=== PATIENT | male | born 1950 | race Hispanic/Latino ===

== ENCOUNTER 2016-12-02 08:02 | Observation (INO) | payer OTHER ==
--- NOTE | 2016-12-02 08:26 | C.PDOC ---
History Of Present Illness 65-YEAR-OLD MALE, PRESENTS TO THE EMERGENCY DEPARTMENT WITH COMPLAINTS OF WORSENING SOB X 2-3 DAYS. HO COPD. 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 PS "I FEEL 75% BACK TO NORMAL". PS INITIALLY HE HAD WHEEZE NOW RESOLVED W EMS [place]. CO CHEST TIGHTNESS "BC IM SO SHORT OF BREATH" BUT DENIES CHEST PAIN. NO FEVER, LEG SWELL. DENIES HO CHF. STATES DOES NOT HAVE HOME O2 EXAM MILD RESP DIST APPEARS COMFORTABLE HEENT NEG LUNGS +RETRACTIONS, SPEAKING FULL SENTENCES. DECR BS B/L NO RALES CV RRR SINUS TACH ABD NEG NO EDEMA WARM DRY MDM PT ADVISED POSSIBILITY OF NEED FOR ADMISSION BUT PS PREFERS NO ADMISSION. PMD @ [place] WILL ER OBS, REASSESS Time Seen by Provider: 12/02/16 08:05 History Per: Patient History/Exam Limitations: no limitations Past Medical History Reviewed: Historical Data, Nursing Documentation, Vital Signs Vital Signs: Last Vital Signs Temp 98.1 F 12/02/16 12:49 Pulse 113 H 12/02/16 12:49 Resp 27 H 12/02/16 12:49 BP 143/87 12/02/16 12:49 Pulse Ox 89 L 12/02/16 12:49 Family History: States: No Known Family Hx Review Of Systems Except As Marked, All Systems Reviewed And Found Negative. Constitutional: Negative for: Fever Cardiovascular: Positive for: Chest Pain (tightness). Negative for: Palpitations, Edema Respiratory: Positive for: Shortness of Breath, Wheezing Gastrointestinal: Negative for: Vomiting Musculoskeletal: Negative for: Back Pain Physical Exam - Physical Exam Appears: Non-toxic, No Acute Distress, Other (MILD RESP DIST APPEARS COMFORTABLE ) Skin: Warm, Dry, No Rash Head: Atraumatic, Normacephalic Eye(s): bilateral: Normal Inspection, PERRL Nose: Normal Oral Mucosa: Moist Neck: Normal ROM Chest: Symmetrical Cardiovascular: Rhythm Regular (SINUS TACH), No Murmur Respiratory: No Accessory Muscle Use, Other (+RETRACTIONS, SPEAKING FULL SENTENCES. DECR BS B/L NO RALES) Gastrointestinal/Abdominal: Soft, No Tenderness Extremity: Normal ROM Neurological/Psych: Oriented x3 ED Course And Treatment - Laboratory Results Result Diagrams: 12/02/16 08:43 12/02/16 08:43 ECG: Interpreted By Me ECG Rhythm: Sinus Tachycardia ECG Interpretation: Abnormal Rate From EC - Radiology CXR: Interpreted by Me CXR Interpretation: Yes: No Acute Disease Medical Decision Making Medical Decision Making: PT ADVISED POSSIBILITY OF NEED FOR ADMISSION BUT PS PREFERS NO ADMISSION. PMD @ [place]. WILL ER OBS, REASSESS ED OBSERVATION Discharge: Yes Date of observation admission: 12/02/16 Time of observation admission: 08:15 - Observation admission statement Patient is being placed in observation because:: COPD EXAC; RESP DIST - Goals of Observation Goals of observation are:: VSS, SX IMPROVE - Progress Note Progress Note: 12:40 Patient ambulatory in ED, states he feels better. Patient w/ persistent dyspnea on exertion. His O2 sat 85% on RA w/ exertion. Has unknown baseline O2. Patient was advised on need for admission due to persistent hypoxia and shortness of breath. States he does not want to be admitted. Leaving Against Medical Advice (AMA): This patient is choosing to leave against medical advice. I have personally explained to the pt that choosing to do so may result in permanent bodily harm or . I have discussed at great length that without further evaluation and monitoring there may be unforeseen circumstances and/or deterioration causing permanent bodily harm or as a result of their choice. The pt verbalized these risks back to the physician in laymans terms. The pt is alert, oriented, and shows the mental capacity to make clear decisions regarding the pts health care at this time. The pt continues to wish to leave against medical advice. In light of the pts decision to leave AMA, follow-up has been arranged and the pt is aware of the importance of following up as instructed. The pt has been advised that they should return to the ED immediately if they change their mind at any time, or if their condition begins to change or worsen in any way. Disposition Counseled Patient/Family Regarding: Studies Performed, Diagnosis, Need For Followup, Rx Given - Disposition Disposition: AGAINST MEDICAL ADVICE Disposition Time: 12:30 Condition: STABLE - Clinical Impression Clinical Impression: Respiratory distress, COPD exacerbation, Hypoxia - Scribe Statement The provider has reviewed the documentation as recorded by the Scribe (Yovany Barron) All medical record entries made by the Scribe were at my direction and personally dictated by me. I have reviewed the chart and agree that the record accurately reflects my personal performance of the history, physical exam, medical decision making, and the department course for this patient. I have also personally directed, reviewed, and agree with the discharge instructions and disposition.
[2016-12-02 08:30] VITALS: BMI 36.6
[2016-12-02 08:48] LABS: BASO # 0.1 K/uL (0.0-0.2); BASO % 0.9 % (0.0-2.0); EOS # 0.1 K/uL (0.0-0.7); EOS % 0.6 % (0.0-4.0); HEMOGLOBIN 14.9 g/dL (12.0-18.0); LYMPH # 2.2 K/uL (1.0-4.3); MEAN CELL VOLUME 85.2 fL (80.0-94.0); MEAN CORPUSCULAR HEMOGLOBIN 27.7 pg (27.0-31.0); MEAN CORPUSCULAR HGB CONC 32.5 g/dL (33.0-37.0); MEAN PLATELET VOLUME 9.1 fL (7.2-11.7); MONO # 0.9 K/uL (0.0-0.8); MONO % 8.3 % (0.0-10.0); NEUT # 7.1 K/uL (1.8-7.0); NEUT % 69.2 % (50.0-75.0); NRBC % 0.1 % (0.0-2.0); RBC 5.39 Mil/uL (4.40-5.90); RED CELL DISTRIBUTION WIDTH 15.5 % (11.5-14.5); WHITE BLOOD COUNT 10.3 K/uL (4.8-10.8)
[2016-12-02] MEDS: Albuterol-Ipratrop 3 mg / 0.5 (3 ml) UD IH SCH ×2 (08:50→09:00)
[2016-12-02 08:55] LABS: ALBUMIN 3.7 g/dL (3.5-5.0)
[2016-12-02 08:58] LABS: AST/SGOT 25 U/L (17-59); GFR AFRICAN-AMERICAN > 60; GFR NON-AFRICAN AMERICAN > 60
[2016-12-02 08:59] LABS: ALT/SGPT 50 U/L (21-72); BLOOD UREA NITROGEN 15 mg/dL (9-20); CALCIUM 8.6 mg/dl (8.6-10.4)
--- NOTE | 2016-12-02 09:06 | RAD ---
PROCEDURE: CHEST RADIOGRAPH, 1 VIEW HISTORY: Shortness of breath COMPARISON: None available. FINDINGS: LUNGS: The lungs are hyperinflated and there are chronic changes in both lungs. No focal consolidation. PLEURA: No pneumothorax or pleural fluid seen. CARDIOVASCULAR: Normal. OSSEOUS STRUCTURES: No significant abnormalities. VISUALIZED UPPER ABDOMEN: Normal. OTHER FINDINGS: None. IMPRESSION: No active pulmonary disease. COPD.
[2016-12-02 09:07] LABS: B-TYPE NATRIURETIC PEPTIDE 2220 pg/mL (0-900)
[2016-12-02 12:49] VITALS: BP 143/87; PULSE 113; RESP 27; TEMP 98.1; O2SAT 89
--- NOTE | 2016-12-03 14:45 | CARD ---
APPROVED REPORT EKG Measurement Heart [id number] [place] [id number] <Conclusion> Sinus tachycardia Otherwise normal ECG
== END 2016-12-02 13:16 | disposition home or self-care (01) ==
LOC: C.ER 08:02 → C.9OBSV 08:15
PROVIDERS: ADMIT Emergency Medicine; ATTEND Emergency Medicine
DX: J44.1 Chronic obstructive pulmonary disease with (acute) exacerbation (principal); R09.02 Hypoxemia
CPT/HCPCS: 71010; 80053; 83880; 84484; 85025; 94640; G0378

== ENCOUNTER 2018-07-05 17:59 | Emergency (ER) | payer SELFPAY ==
[2018-07-05 17:59] VITALS: BMI 36.6
[2018-07-05 18:10] VITALS: O2SAT 95
[2018-07-05] MEDS ORDERED: Albuterol-Ipratrop 3 mg / 0.5 (3 ml) UD INH STA (18:21)
[2018-07-05] MEDS ORDERED: Albuterol 0.083% Inhal Sol (2.5 mg/3 mL) UD IH STA ×2 (18:21→19:40)
[2018-07-05] MEDS ORDERED: Albuterol-Ipratrop 3 mg / 0.5 (3 ml) UD ONE (19:12)
[2018-07-05] MEDS ORDERED: Albuterol 0.083% Inhal Sol (2.5 mg/3 mL) UD ONE ×2 (19:13→20:08)
--- NOTE | 2018-07-05 19:16 | C.PDOC ---
History Of Present Illness 67 year old male brought by EMS for evaluation s/p stumbling and falling in a grocery store. He denies drinking alcohol, but admitted drinking Bacardi to the EMS. He also complains of right shoulder pain, lower back pain, cough, SOB, and wheezing. Patient has a PMHx of asthma, COPD, chronic back pain, and psychiatric problems. He denies nausea, vomiting, weakness, or numbness. - HPI Time Seen by Provider: 07/05/18 18:08 Chief Complaint (Nursing): Trauma History Per: Patient History/Exam Limitations: intoxication Onset/Duration Of Symptoms: Hrs Location Of Injury: Right: Arm (right shoulder pain) - Fall Fall:Prior To Injury: Other (stumbled) Past Medical History Reviewed: Historical Data, Nursing Documentation, Vital Signs Vital Signs: Last Vital Signs Temp 98.7 F 07/05/18 18:07 Pulse 97 H 07/05/18 18:07 Resp 19 07/05/18 18:07 BP 172/77 H 07/05/18 18:07 Pulse Ox 95 07/05/18 18:07 - Medical History PMH: Asthma, HTN Surgical History: No Surg Hx Family History: States: Unknown Family Hx - Social History Hx Alcohol Use: No (DENIES) Hx Substance Use: No - Immunization History Hx Tetanus Toxoid Vaccination: No Hx Influenza Vaccination: No Hx Pneumococcal Vaccination: No Review Of Systems Constitutional: Negative for: Fever, Chills, Weakness Cardiovascular: Negative for: Chest Pain, Palpitations, Light Headedness Respiratory: Positive for: Cough, Shortness of Breath, Wheezing Gastrointestinal: Negative for: Nausea, Vomiting Musculoskeletal: Positive for: Shoulder Pain (right), Back Pain (lower) Neurological: Negative for: Weakness, Numbness, Dizziness Physical Exam - Physical Exam Appears: Unkempt, Other (intoxicated, coughing intermittently) Skin: Normal Color, Warm, Dry Head: Atraumatic, Normacephalic Neck: Normal ROM, Supple Chest: Symmetrical, No Deformity Cardiovascular: Rhythm Regular, No Murmur Respiratory: No Rales, No Rhonchi, Wheezing (diffuse, expiratory wheezing bilaterally) Gastrointestinal/Abdominal: Soft, No Tenderness Extremity: Capillary Refill (<2 seconds), Other (dirty feet) Pulses: Left Radial: Normal, Right Radial: Normal Neurological/Psych: Oriented x3, Normal Speech, Normal Cognition ED Course And Treatment O2 Sat by Pulse Oximetry: 95 (RA) Progress Note: CXR and Right shoulder X-ray ordered for patient. Glucose POC ordered for patient. Paient given Duoneb INH, Tylenol PO, and Prednisone PO. Disposition Counseled Patient/Family Regarding: Studies Performed, Diagnosis, Need For Followup, Rx Given - Disposition Referrals: [facility] [Outside] Disposition: HOME/ ROUTINE Disposition Time: 22:00 Condition: STABLE Prescriptions: Albuterol HFA [Ventolin HFA 90 mcg/actuation (8 g)] 0.09 mg IH Q4 PRN #1 puff PRN Reason: Wheezing predniSONE [predniSONE Tab] 40 mg PO DAILY #8 tab Instructions: Alcohol Abuse and Alcoholism (DC), Chronic Obstructive Pulmonary Disease (COPD), Including Emphysema Forms: [employer] (Mohawk) Print Language: BAHRAINI - Clinical Impression Clinical Impression: Alcohol intoxication, COPD exacerbation - Scribe Statement The provider has reviewed the documentation as recorded by the Scribe (Kaye Chapman) All medical record entries made by the Scribe were at my direction and personally dictated by me. I have reviewed the chart and agree that the record accurately reflects my personal performance of the history, physical exam, medical decision making, and the department course for this patient. I have also personally directed, reviewed, and agree with the discharge instructions and disposition.
[2018-07-05 19:53] VITALS: RESP 16
[2018-07-05 21:25] VITALS: BP 130/75; PULSE 90; TEMP 97.9
--- NOTE | 2018-07-06 08:32 | RAD ---
Chest x-ray single frontal view HISTORY: Shortness of breath. Cough. COMPARISON: 12/02/2016 Findings: Diffuse increased interstitial lung markings. Mild venous congestion. Right hilar prominence. Mild cardiomegaly. Degenerative changes in the spine and shoulders. Impression: Diffuse increased interstitial lung markings. Mild venous congestion. Right hilar prominence. Mild cardiomegaly.
--- NOTE | 2018-07-06 11:43 | RAD ---
Date of service: 07/05/2018 PROCEDURE: Radiographs of the Right Shoulder HISTORY: right shoulder pain, ? fall,r/o FX COMPARISON: No prior. FINDINGS: BONES: Bone alignment and mineralization are normal. There is no acute displaced fracture or bone destruction. JOINTS: There is moderate degenerative osteoarthrosis in the acromioclavicular joint. The glenohumeral joint is normal. SOFT TISSUES: Normal. OTHER FINDINGS: None. IMPRESSION: No acute displaced fracture or dislocation.
== END 2018-07-05 22:05 | disposition home or self-care (01) ==
LOC: C.ER 17:59
DX: F10.129 Alcohol abuse with intoxication, unspecified (principal); J44.1 Chronic obstructive pulmonary disease with (acute) exacerbation; I10 Essential (primary) hypertension

== ENCOUNTER 2018-07-11 12:02 | Emergency (ER) | payer OTHER ==
[2018-07-11 12:02] VITALS: BMI 36.6
[2018-07-11] MEDS ORDERED: Sodium Chloride 0.9% 1,000 ML IV ONE (12:31)
[2018-07-11] MEDS ORDERED: Albuterol-Ipratrop 3 mg / 0.5 (3 ml) UD IH STA (12:35)
[2018-07-11] MEDS ORDERED: Sodium Chloride 0.9% 1,000 ML ONE (13:04)
--- NOTE | 2018-07-11 13:04 | RAD ---
Date of service: 07/11/2018 HISTORY: Sepsis Patient COMPARISON: 07/05/2018 FINDINGS: LUNGS: No active pulmonary disease. PLEURA: No significant pleural effusion identified, no pneumothorax apparent. CARDIOVASCULAR: No aortic atherosclerotic calcification present. Normal cardiac size. No pulmonary vascular congestion. OSSEOUS STRUCTURES: No significant abnormalities. VISUALIZED UPPER ABDOMEN: Normal. OTHER FINDINGS: None. IMPRESSION: No active disease.
[2018-07-11] MEDS ORDERED: Albuterol-Ipratrop 3 mg / 0.5 (3 ml) UD ONE (13:05)
[2018-07-11 13:10] LABS: ABG ALLEN TEST PO; ARTERIAL BLOOD GAS HCO3 21.1 mmol/L (21-28); ARTERIAL BLOOD GAS O2 SAT 92.2 % (95-98); ARTERIAL BLOOD GAS PCO2 40 mm/Hg (35-45); ARTERIAL BLOOD GAS PH 7.33 (7.35-7.45); ARTERIAL BLOOD GAS PO2 55 mm/Hg (80-100); ARTERIAL BLOOD GAS TCO2 22.3 mmol/L (22-28)
[2018-07-11 13:31] LABS: BASO # 0.1 K/uL (0.0-0.2); BASO % 0.8 % (0.0-2.0); EOS # 0.1 K/uL (0.0-0.7); EOS % 0.6 % (0.0-4.0); HEMOGLOBIN 14.2 g/dL (12.0-18.0); LYMPH # 0.9 K/uL (1.0-4.3); LYMPH % 10.2 % (20.0-40.0); MEAN CORPUSCULAR HEMOGLOBIN 28.8 pg (27.0-31.0); MEAN CORPUSCULAR HGB CONC 32.9 g/dL (33.0-37.0); MEAN PLATELET VOLUME 9.5 fL (7.2-11.7); MONO # 0.3 K/uL (0.0-0.8); MONO % 4.1 % (0.0-10.0); NEUT # 7.1 K/uL (1.8-7.0); NEUT % 84.3 % (50.0-75.0); RBC 4.93 Mil/uL (4.40-5.90); RED CELL DISTRIBUTION WIDTH 15.4 % (11.5-14.5); WHITE BLOOD COUNT 8.5 K/uL (4.8-10.8)
[2018-07-11 13:35] LABS: MEAN CELL VOLUME 87.7 fL (80.0-94.0)
[2018-07-11 13:41] LABS: PROTHROMBIN TIME 10.5 SECONDS (9.7-12.2)
--- NOTE | 2018-07-11 13:43 | C.PDOC ---
History Of Present Illness 67 y/o male with a PMHx of COPD, asthma, chronic back pain, and psychiatric illness brought in by EMS from home for evaluation s/p syncopal episode associated with a possible seizure per EMS. At present time patient appears AAOx3 and is responding to questions appropriate. Pt denies prior hx of seizures. Patient states he is not sure why he is in the ED right now. Noted to have dried blood on lips. Pt is poor historian, unable to provide history but denies any recent alcohol use or drug use, denies CP, SOB, dyspnea, palpitation. Appears comfortable, not in any apparent distress. Time Seen by Provider: 07/11/18 12:29 Chief Complaint (Nursing): Seizure History Per: Patient History/Exam Limitations: no limitations Recent Seizure Activity Began: Just Before Arrival Length Of Seizures (Duration): Unknown Past Medical History Reviewed: Historical Data, Nursing Documentation, Vital Signs Vital Signs: Last Vital Signs Temp 97.9 F 07/11/18 12:13 Pulse 92 H 07/11/18 13:10 Resp 18 07/11/18 13:10 BP 145/80 07/11/18 13:10 Pulse Ox 100 07/11/18 13:10 - Medical History PMH: Asthma, Back Problems (sciatica), HTN Surgical History: No Surg Hx Family History: States: Unknown Family Hx - Social History Hx Alcohol Use: No (DENIES) Hx Substance Use: No - Immunization History Hx Tetanus Toxoid Vaccination: No Hx Influenza Vaccination: No Hx Pneumococcal Vaccination: No Review Of Systems Except As Marked, All Systems Reviewed And Found Negative. Constitutional: Negative for: Fever, Chills Eyes: Negative for: Vision Change Cardiovascular: Negative for: Chest Pain Respiratory: Negative for: Shortness of Breath Gastrointestinal: Negative for: Vomiting, Diarrhea Musculoskeletal: Negative for: Neck Pain, Back Pain Skin: Positive for: Other (dried blood to lips) Neurological: Positive for: Seizures (Syncope with ?seizure activity). Negative for: Weakness, Numbness, Change in Speech, Headache, Dizziness Physical Exam - Physical Exam Appears: Non-toxic, No Acute Distress, Unkempt Skin: Warm, Dry, Other (scattered body excoriation noted) Head: Atraumatic, Normacephalic, No Tenderness, No Swelling Eye(s): bilateral: PERRL Nose: No Deformity, No Tenderness Oral Mucosa: Moist, No Drooling, No Trismus Tongue: Bite (left side) Lips: Normal Appearing, Other (Dried blood noted) Throat: No Drooling Neck: Trachea Midline, No Midline Cervical Tenderness, No Paracervical Tenderness, No Step Off Deformity, Supple Chest: Symmetrical, No Deformity, No Tenderness Cardiovascular: Rhythm Irregular (tachy), No Murmur, No JVD, Other (tachycardic) Respiratory: No Decreased Breath Sounds, No Accessory Muscle Use, No Rhonchi, No Stridor, Wheezing (scattered expiratory wheezing, right > left), No Plerual Rub Gastrointestinal/Abdominal: Soft, No Tenderness, No Distention Extremity: Normal ROM (x4), No Pedal Edema, No Calf Tenderness, No Swelling Extremity: Bilateral: Atraumatic Neurological/Psych: Normal Motor, Normal Sensation, Normal Reflexes ED Course And Treatment - Laboratory Results Result Diagrams: 07/11/18 13:22 07/11/18 13:22 Lab Results: Puncture Site Rra 07/11/18 13:05 pCO2 40 mm/Hg (35-45) 07/11/18 13:05 pO2 55 mm/Hg (80-100) L 07/11/18 13:05 HCO3 21.1 mmol/L (21-28) 07/11/18 13:05 ABG pH 7.33 (7.35-7.45) L 07/11/18 13:05 ABG Total CO2 22.3 mmol/L (22-28) 07/11/18 13:05 ABG O2 Saturation 92.2 % (95-98) L 07/11/18 13:05 ABG Base Excess -4.5 mmol/L (-2.0-3.0) L 07/11/18 13:05 Andrea Test Po 07/11/18 13:05 ABG Potassium 3.3 mmol/L (3.6-5.2) L 07/11/18 13:05 A-a O2 Difference 45.0 mm/Hg 07/11/18 13:05 Respiratory Index 0.8 07/11/18 13:05 Sodium 139.0 mmol/l (132-148) 07/11/18 13:05 Chloride 112.0 mmol/L (98-107) H 07/11/18 13:05 Glucose 91 mg/dl (75-110) 07/11/18 13:05 Lactate 0.9 mmol/L (0.7-2.1) 07/11/18 13:05 FiO2 21.0 % 07/11/18 13:05 PT 10.5 SECONDS (9.7-12.2) 07/11/18 13:22 INR 1.0 07/11/18 13:22 APTT 27 SECONDS (21-34) 07/11/18 13:22 Lab Interpretation: No Acute Changes ECG: Interpreted By Me, Viewed By Me ECG Rhythm: Sinus Tachycardia Interpretation Of ECG: sinus tachycardia with PAC, no acute T wave or ST-T changes Rate From EC O2 Sat by Pulse Oximetry: 100 (RA) Pulse Ox Interpretation: Normal - Radiology CXR: Viewed By Me, Read By Radiologist CXR Interpretation: Yes: No Acute Disease. No: Infiltrates, Pnemothorax - CT Scan/US CT head w/o contrast Other Rad Studies (CT/US): Radiology Report Reviewed CT/US Interpretation: Creator : Tatiana Elizondo. Dictator : Sherry Hawthorne MD. Mail Reader : Ergonomics Technician : Sherry Hawthorne MD. Approver2 : Report Date : 07/11/2018 14:21:40. My Comment : . Date of service: 07/11/2018. PROCEDURE: CT HEAD WITHOUT CONTRAST. HISTORY: syncope, sz? COMPARISON: None available. TECHNIQUE: Axial computed tomography images were obtained through the head/brain without intravenous contrast. Radiation dose: Total exam DLP = 972.29 mGy-cm. This CT exam was performed using one or more of the following dose reduction techniques: Automated exposure control, adjustment of the mA and/or kV according to patient size, and/or use of iterative reconstruction technique. FINDINGS: HEMORRHAGE: No intracranial hemorrhage. BRAIN: There are mild chronic microangiopathic changes. There is no mass, mass effect or abnormal extra-axial fluid collection. There are small old lacunar infarctions in the left miller radiata and bilateral basal ganglia.. The midline sagittal structures are normal. There are coarse atherosclerotic calcifications in the cavernous carotid arteries. VENTRICLES: There is mild age-related global parenchymal volume loss and proportionate enlargement of the cortical sulci. Ventricular dilatation is slightly out of proportion to the sulcal prominence. CALVARIUM: There is no calvarial fracture or extracranial soft tissue swelling. PARANASAL SINUSES: Predominantly clear. MASTOID AIR CELLS: Predominantly clear. OTHER FINDINGS: None. IMPRESSION: No acute intracranial abnormality. Mild chronic microangiopathic changes and mild age-related global parenchymal volume loss. 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 Ventricular dilatation is slightly out of proportion to sulcal prominence, communicating hydrocephalus including normal pressure h ydrocephalus are differential considerations. Clinical follow-up is advised. Progress Note: Labs, EKG, CXR ordered and reviewed. Head CT pending. Administered 1L IV fluids, 125 mg IV Solu-Medrol, and Duoneb x1. Pt remained stable in ED. case discussed with Ed attending , blood work, imaging review and admission recommend. case discussed with Hospitalist and admission arranged with Dx: SYncope r/o new onset of seizure. neuro consult recommend. I was told by RN, after resident evaluated patient in ED, pt refused admission and request discharge. As per RN, pt was AMA by med. resident. Critical Care Time - Critical Care Note Total Time (in mins): 30 Documented critical care: time excludes all time spent performing seperately billable procedures. Disposition - Disposition Disposition: AGAINST MEDICAL ADVICE Disposition Time: 14:43 Condition: STABLE - Clinical Impression Clinical Impression: Syncope, New onset seizure - PA / MEDICAL TECHNOLOGIST / Resident Statement MD/DO has reviewed & agrees with the documentation as recorded. - Scribe Statement The provider has reviewed the documentation as recorded by the Aissatou Lucas All medical record entries made by the Damonibroyce were at my direction and personally dictated by me. I have reviewed the chart and agree that the record accurately reflects my personal performance of the history, physical exam, medical decision making, and the department course for this patient. I have also personally directed, reviewed, and agree with the discharge instructions and disposition.
[2018-07-11 13:53] LABS: ALB/GLOB RATIO 1.4 (1.0-2.1); ALBUMIN 4.2 g/dL (3.5-5.0); ALT/SGPT 24 U/L (21-72); AST/SGOT 41 U/L (17-59); BLOOD UREA NITROGEN 15 mg/dL (9-20); CALCIUM 8.8 mg/dl (8.6-10.4); GFR NON-AFRICAN AMERICAN > 60
[2018-07-11 14:00] LABS: B-TYPE NATRIURETIC PEPTIDE 595 pg/mL (0-900)
--- NOTE | 2018-07-11 14:37 | CT ---
Date of service: 07/11/2018 PROCEDURE: CT HEAD WITHOUT CONTRAST. HISTORY: syncope, sz? COMPARISON: None available. TECHNIQUE: Axial computed tomography images were obtained through the head/brain without intravenous contrast. Radiation dose: Total exam DLP = 972.29 mGy-cm. This CT exam was performed using one or more of the following dose reduction techniques: Automated exposure control, adjustment of the mA and/or kV according to patient size, and/or use of iterative reconstruction technique. FINDINGS: HEMORRHAGE: No intracranial hemorrhage. BRAIN: There are mild chronic microangiopathic changes. There is no mass, mass effect or abnormal extra-axial fluid collection. There are small old lacunar infarctions in the left miller radiata and bilateral basal ganglia.. The midline sagittal structures are normal. There are coarse atherosclerotic calcifications in the cavernous carotid arteries. VENTRICLES: There is mild age-related global parenchymal volume loss and proportionate enlargement of the cortical sulci. Ventricular dilatation is slightly out of proportion to the sulcal prominence. CALVARIUM: There is no calvarial fracture or extracranial soft tissue swelling. PARANASAL SINUSES: Predominantly clear. MASTOID AIR CELLS: Predominantly clear. OTHER FINDINGS: None. IMPRESSION: No acute intracranial abnormality. Mild chronic microangiopathic changes and mild age-related global parenchymal volume loss. 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 Ventricular dilatation is slightly out of proportion to sulcal prominence, communicating hydrocephalus including normal pressure hydrocephalus are differential considerations. Clinical follow-up is advised.
[2018-07-11] MEDS ORDERED: Potassium & Sodium Phosphate PO ONE (15:45)
[2018-07-11 15:50] VITALS: BP 145/82; PULSE 98; RESP 16; TEMP 98
--- NOTE | 2018-07-11 16:22 | CP.PCM.HP ---
<AndresJarred - Last Filed: 07/11/18 16:30> History of Present Illness - History of Present Illness History of Present Illness: Jarred Campos PGY1 H&P for Dr. Nugent CC: My shoulder hurts HPI: Patient is a 67 year old male with past medical history of COPD, asthma, HTN, and depression who was brought in by EMS for seizures. Upon questioning, patient denies any seizures today or ever and recalls calling ambulance for his right shoulder pain. He recalls getting into ambulance and arriving at hospital. He denies any loss of consciousness or falls. He reports right shoulder pain for the past week. He reports any achy pain that worsens with use. He denies numbness or tingling in the arms. He was recently seen in the ED on 07/05/18 after being brought in by police for falling and stumbling in grocery store. At that time, he received an Xray of his right shoulder which did not show any fractures or dislocations. He denies any fever, chills, abdominal pain, nausea, vomiting, diarrhea, dysuria, recent travel or sick contacts. PMD: COPD, asthma, HTN, and depression SxH: denies FamH: denies SocH: denies any tobacco, etoh, or recreational drug use. however last admission admitted to alcohol use Meds: losartan, prozac, albuterol nebulizer (does not remember dosages or p harmacy) Allergies: NKDA PMD: none Present on Admission - Present on Admission Any Indicators Present on Admission: No Review of Systems - Constitutional Constitutional: absent: Chills, Excessive Sweating, Weakness - EENT Eyes: absent: Blurred Vision Ears: absent: Dizziness Nose/Mouth/Throat: absent: Nasal Congestion - Cardiovascular Cardiovascular: absent: Chest Pain, Palpitations, Syncope - Respiratory Respiratory: absent: Cough, Dyspnea - Gastrointestinal Gastrointestinal: absent: Abdominal Pain, Diarrhea, Nausea, Vomiting - Genitourinary Genitourinary: absent: Dysuria - Musculoskeletal Musculoskeletal: Other. absent: Numbness, Tingling Additional comments: shoulder pain, right - Integumentary Integumentary: absent: Rash - Neurological Neurological: absent: Convulsions, Frequent Falls, Sensory Deficit, Tingling, Vertigo - Psychiatric Psychiatric: absent: Anxiety Past Patient History - Infectious Disease Hx of Infectious Diseases: None - Past Social History Smoking Status: Heavy Smoker > 10 Cigarettes Daily - CARDIAC Hx Hypertension: Yes - PULMONARY Hx Asthma: Yes - MUSCULOSKELETAL/RHEUMATOLOGICAL Hx Musculoskeletal Disorders: Yes Hx Spinal Stenosis: Yes Other/Comment: Sciatica - PSYCHIATRIC Hx Substance Use: No - SURGICAL HISTORY Hx Surgeries: No - ANESTHESIA Hx Anesthesia: No Meds Allergies/Adverse Reactions: Allergies Allergy/AdvReac Type Severity Reaction Status Date / Time No Known Allergies Allergy Verified 07/11/18 12:20 Physical Exam - Constitutional Appears: Well, No Acute Distress - Head Exam Head Exam: ATRAUMATIC, NORMOCEPHALIC - Eye Exam Eye Exam: EOMI, PERRL - ENT Exam ENT Exam: Mucous Membranes Moist - Neck Exam Neck exam: Negative for: Lymphadenopathy - Respiratory Exam Respiratory Exam: Clear to Auscultation Bilateral, NORMAL BREATHING PATTERN. absent: Rales, Rhonchi, Wheezes - Cardiovascular Exam Cardiovascular Exam: Tachycardia, +S1, +S2. absent: Gallop, Rubs, Systolic Murmur - GI/Abdominal Exam GI & Abdominal Exam: Normal Bowel Sounds, Soft. absent: Distended, Tenderness - Extremities Exam Extremities exam: Negative for: calf tenderness, pedal edema Additional comments: tenderness to palpation of lateral and posterior shoulder. Spurling's test negative. ROM limited due to pain - Back Exam Back exam: absent: muscle spasm, tenderness - Neurological Exam Neurological exam: Alert, CN II-XII Intact, Oriented x3, Reflexes Normal - Expanded Neurological Exam Expanded Sensory exam: Lower Extremity Light Touch: Normal, Upper Extremity Light Touch: Normal Neuro motor strength exam: Left Upper Extremity: 5, Right Upper Extremity: 5, Left Lower Extremity: 5, Right Lower Extremity: 5 DTR: Patellar Left: 2+, Patellar Right: 2+ - Psychiatric Exam Psychiatric exam: Normal Affect, Normal Mood - Skin Skin Exam: Dry, Warm Results - Vital Signs Recent Vital Signs: Last Vital Signs Temp 98.0 F 07/11/18 15:49 Pulse 98 H 07/11/18 15:49 Resp 16 07/11/18 15:49 BP 145/82 07/11/18 15:49 Pulse Ox 97 07/11/18 15:49 - Labs Result Diagrams: 07/11/18 13:22 07/11/18 13:22 Labs: Laboratory Results - last 24 hr 07/11/18 07/11/18 07/11/18 12:10 13:05 13:22 WBC 8.5 RBC 4.93 Hgb 14.2 Hct 43.2 MCV 87.7 D MCH 28.8 MCHC 32.9 L RDW 15.4 H Plt Count 200 MPV 9.5 Neut % (Auto) 84.3 H Lymph % (Auto) 10.2 L Angelina % (Auto) 4.1 Eos % (Auto) 0.6 Baso % (Auto) 0.8 Neut # (Auto) 7.1 H Lymph # (Auto) 0.9 L Angelina # (Auto) 0.3 Eos # (Auto) 0.1 Baso # (Auto) 0.1 PT INR APTT Puncture Site Rra pCO2 40 pO2 55 L HCO3 21.1 ABG pH 7.33 L ABG Total CO2 22.3 ABG O2 Saturation 92.2 L ABG Base Excess -4.5 L Andrea Test Po ABG Potassium 3.3 L A-a O2 Difference 45.0 Respiratory Index 0.8 Sodium 139.0 Chloride 112.0 H Glucose 91 Lactate 0.9 FiO2 21.0 Potassium Carbon Dioxide Anion Gap BUN Creatinine Est GFR ( Amer) Est GFR (Non-Af Amer) POC Glucose (mg/dL) 134 H Random Glucose Calcium Phosphorus Magnesium Total Bilirubin AST ALT Alkaline Phosphatase Troponin I NT-Pro-B Natriuret Pep Total Protein Albumin Globulin Albumin/Globulin Ratio Arterial Blood Potassium 3.3 L 07/11/18 07/11/18 13:22 13:22 WBC RBC Hgb Hct MCV MCH MCHC RDW Plt Count MPV Neut % (Auto) Lymph % (Auto) Angelina % (Auto) Eos % (Auto) Baso % (Auto) Neut # (Auto) Lymph # (Auto) Angelina # (Auto) Eos # (Auto) Baso # (Auto) PT 10.5 INR 1.0 APTT 27 Puncture Site pCO2 pO2 HCO3 ABG pH ABG Total CO2 ABG O2 Saturation ABG Base Excess Andrea Test ABG Potassium A-a O2 Difference Respiratory Index Sodium 136 Chloride 104 Glucose Lactate FiO2 Potassium 3.7 Carbon Dioxide 24 Anion Gap 11 BUN 15 Creatinine 0.8 Est GFR ( Amer) > 60 Est GFR (Non-Af Amer) > 60 POC Glucose (mg/dL) Random Glucose 93 D Calcium 8.8 Phosphorus 1.5 L Magnesium 2.2 Total Bilirubin 0.3 AST 41 ALT 24 Alkaline Phosphatase 128 H Troponin I 0.0230 NT-Pro-B Natriuret Pep 595 Total Protein 7.2 Albumin 4.2 Globulin 2.9 Albumin/Globulin Ratio 1.4 Arterial Blood Potassium Assessment & Plan - Assessment and Plan (Free Text) Assessment: Patient is a 67 year old male with past medical history of COPD, asthma, HTN, and depression who was brought in by EMS for seizures. Patient did not recall seizure, reports calling EMS due to R shoulder pain. Patient wished to sign out AMA. Plan: Reported Seizure unconfirmed, 1st time patient denies seizure episode - CT head: no acute intracranial pathology. ventricular dilatation possibly due to communicating hydrocephalus vs. NPH. mild chronic microangiopathic changes. age-related volume loss. - EKG: sinus tachy, premature atrial complexes - troponins negative - f/u UDS and serum etoh to r/o intoxication - patient afebrile, no leukocytosis - f/u UA, UCx, BCx to r/o infectious cause - neuro checks q4h - seizure precautions - fall precautions - aspiration precautions - Neurology consult Right Shoulder Pain likely secondary to osteoarthritis - Xray R shoulder: no fracture or dislocation - patient requesting steroid injection, counseled to follow up at [facility] COPD - CXR: no active disease - given duonebs in the ED, reports improved breathing - given solumedrol 125mg IV in the ED - ABG: pH 7.33, pCO2 40, pO2 55, HCO3 21.1 - NC 2L PRN HTN - patient unaware of home losartan dose - monitor BP Hypophosphatemia - P 1.5 - replete with Neutrophos Depression - patient unaware of home prozac dose PPX DVT: Lovenox 40u SC daily GI: pepcid 20mg PO BID HHD <Anne Nugent V - Last Filed: 07/11/18 20:36> Results - Vital Signs Recent Vital Signs: Last Vital Signs Temp 98.0 F 07/11/18 15:49 Pulse 98 H 07/11/18 15:49 Resp 16 07/11/18 15:49 BP 145/82 07/11/18 15:49 Pulse Ox 100 07/11/18 16:49 - Labs Result Diagrams: 07/11/18 13:22 07/11/18 13:22 Labs: Laboratory Results - last 24 hr 07/11/18 07/11/18 07/11/18 12:10 13:05 13:22 WBC 8.5 RBC 4.93 Hgb 14.2 Hct 43.2 MCV 87.7 D MCH 28.8 MCHC 32.9 L RDW 15.4 H Plt Count 200 MPV 9.5 Neut % (Auto) 84.3 H Lymph % (Auto) 10.2 L Angelina % (Auto) 4.1 Eos % (Auto) 0.6 Baso % (Auto) 0.8 Neut # (Auto) 7.1 H Lymph # (Auto) 0.9 L Angelina # (Auto) 0.3 Eos # (Auto) 0.1 Baso # (Auto) 0.1 PT INR APTT Puncture Site Rra pCO2 40 pO2 55 L HCO3 21.1 ABG pH 7.33 L ABG Total CO2 22.3 ABG O2 Saturation 92.2 L ABG Base Excess -4.5 L Andrea Test Po ABG Potassium 3.3 L A-a O2 Difference 45.0 Respiratory Index 0.8 Sodium 139.0 Chloride 112.0 H Glucose 91 Lactate 0.9 FiO2 21.0 Potassium Carbon Dioxide Anion Gap BUN Creatinine Est GFR ( Amer) Est GFR (Non-Af Amer) POC Glucose (mg/dL) 134 H Random Glucose Calcium Phosphorus Magnesium Total Bilirubin AST ALT Alkaline Phosphatase Troponin I NT-Pro-B Natriuret Pep Total Protein Albumin Globulin Albumin/Globulin Ratio Arterial Blood Potassium 3.3 L Urine Color Urine Clarity Urine pH Ur Specific Lynndyl Urine Protein Urine Glucose (UA) Urine Ketones Urine Blood Urine Nitrate Urine Bilirubin Urine Urobilinogen Ur Leukocyte Esterase Urine WBC (Auto) Urine RBC (Auto) Ur Squamous Epith Cells Urine Bacteria Urine Opiates Screen Urine Methadone Screen Ur Barbiturates Screen Ur Phencyclidine Scrn Ur Amphetamines Screen U Benzodiazepines Scrn U Oth Cocaine Metabols U Cannabinoids Screen 07/11/18 07/11/18 07/11/18 13:22 13:22 15:58 WBC RBC Hgb Hct MCV MCH MCHC RDW Plt Count MPV Neut % (Auto) Lymph % (Auto) Angelina % (Auto) Eos % (Auto) Baso % (Auto) Neut # (Auto) Lymph # (Auto) Angelina # (Auto) Eos # (Auto) Baso # (Auto) PT 10.5 INR 1.0 APTT 27 Puncture Site pCO2 pO2 HCO3 ABG pH ABG Total CO2 ABG O2 Saturation ABG Base Excess Andrea Test ABG Potassium A-a O2 Difference Respiratory Index Sodium 136 Chloride 104 Glucose Lactate FiO2 Potassium 3.7 Carbon Dioxide 24 Anion Gap 11 BUN 15 Creatinine 0.8 Est GFR ( Amer) > 60 Est GFR (Non-Af Amer) > 60 POC Glucose (mg/dL) Random Glucose 93 D Calcium 8.8 Phosphorus 1.5 L Magnesium 2.2 Total Bilirubin 0.3 AST 41 ALT 24 Alkaline Phosphatase 128 H Troponin I 0.0230 NT-Pro-B Natriuret Pep 595 Total Protein 7.2 Albumin 4.2 Globulin 2.9 Albumin/Globulin Ratio 1.4 Arterial Blood Potassium Urine Color Urine Clarity Urine pH Ur Specific Lynndyl Urine Protein Urine Glucose (UA) Urine Ketones Urine Blood Urine Nitrate Urine Bilirubin Urine Urobilinogen Ur Leukocyte Esterase Urine WBC (Auto) Urine RBC (Auto) Ur Squamous Epith Cells Urine Bacteria Urine Opiates Screen Negative Urine Methadone Screen Negative Ur Barbiturates Screen Positive H Ur Phencyclidine Scrn Negative Ur Amphetamines Screen Negative U Benzodiazepines Scrn Negative U Oth Cocaine Metabols Negative U Cannabinoids Screen Negative 07/11/18 15:58 WBC RBC Hgb Hct MCV MCH MCHC RDW Plt Count MPV Neut % (Auto) Lymph % (Auto) Angelina % (Auto) Eos % (Auto) Baso % (Auto) Neut # (Auto) Lymph # (Auto) Angelina # (Auto) Eos # (Auto) Baso # (Auto) PT INR APTT Puncture Site pCO2 pO2 HCO3 ABG pH ABG Total CO2 ABG O2 Saturation ABG Base Excess Andrea Test ABG Potassium A-a O2 Difference Respiratory Index Sodium Chloride Glucose Lactate FiO2 Potassium Carbon Dioxide Anion Gap BUN Creatinine Est GFR ( Amer) Est GFR (Non-Af Amer) POC Glucose (mg/dL) Random Glucose Calcium Phosphorus Magnesium Total Bilirubin AST ALT Alkaline Phosphatase Troponin I NT-Pro-B Natriuret Pep Total Protein Albumin Globulin Albumin/Globulin Ratio Arterial Blood Potassium Urine Color Yellow Urine Clarity Clear Urine pH 6.0 Ur Specific Lynndyl 1.018 Urine Protein 1+ H Urine Glucose (UA) Normal Urine Ketones Negative Urine Blood Negative Urine Nitrate Negative Urine Bilirubin Negative Urine Urobilinogen Normal Ur Leukocyte Esterase Neg Urine WBC (Auto) < 1 Urine RBC (Auto) 1 Ur Squamous Epith Cells < 1 Urine Bacteria Rare Urine Opiates Screen Urine Methadone Screen Ur Barbiturates Screen Ur Phencyclidine Scrn Ur Amphetamines Screen U Benzodiazepines Scrn U Oth Cocaine Metabols U Cannabinoids Screen Assessment & Plan (1) Left against medical advice Status: Acute Comment: Resident benefits of leaving AGAINST MEDICAL ADVICE described described by the resident to the patient however in spite of explanation patient was leave AGAINST MEDICAL ADVICE from the emergency room patient did not go upstairs for further workup for possible seizure disorder. Attending/Attestation - Attestation Notes (Text): Patient case discussed with the ED physician. However patient left AGAINST MED ICAL ADVICE prior to my arrival. Patient is being admitted for an unwitnessed first-time seizure was about to have a workup for that however discussed with resident she explained the risks and benefits of leaving prematurely AGAINST MEDICAL ADVICE and patient wanted to leave regardless. To reiterate patient is leaving AGAINST MEDICAL ADVICE..
[2018-07-11 16:37] LABS: SQUAMOUS EPITHIAL < 1 /hpf (0-5); URINE BACTERIA RARE (<OCC); URINE BILIRUBIN NEGATIVE (NEGATIVE); URINE BLOOD NEGATIVE (NEGATIVE); URINE CLARITY Clear (Clear); URINE COLOR Yellow (YELLOW); URINE GLUCOSE (UA) NORMAL (Normal); URINE LEUKOCYTE ESTERASE NEG Leu/uL (Negative); URINE PROTEIN 1+ mg/dL (NEGATIVE); URINE UROBILINOGEN NORMAL mg/dL (0.2-1.0)
--- NOTE | 2018-07-11 16:37 | CP.PCM.DIS ---
<AndresMaryammelaroyce - Last Filed: 07/11/18 16:36> Provider - Provider Date of Admission: 07/11/18 14:45 Attending physician: Anne Nugent DO Time Spent in preparation of Discharge (in minutes): 70 Hospital Course - Lab Results Lab Results: Most Recent Lab Values WBC 8.5 K/uL (4.8-10.8) 07/11/18 13:22 RBC 4.93 Mil/uL (4.40-5.90) 07/11/18 13:22 Hgb 14.2 g/dL (12.0-18.0) 07/11/18 13:22 Hct 43.2 % (35.0-51.0) 07/11/18 13:22 MCV 87.7 fL (80.0-94.0) D 07/11/18 13:22 MCH 28.8 pg (27.0-31.0) 07/11/18 13:22 MCHC 32.9 g/dL (33.0-37.0) L 07/11/18 13:22 RDW 15.4 % (11.5-14.5) H 07/11/18 13:22 Plt Count 200 K/uL (130-400) 07/11/18 13:22 MPV 9.5 fL (7.2-11.7) 07/11/18 13:22 Neut % (Auto) 84.3 % (50.0-75.0) H 07/11/18 13:22 Lymph % (Auto) 10.2 % (20.0-40.0) L 07/11/18 13:22 [place] % (Auto) 4.1 % (0.0-10.0) 07/11/18 13:22 Eos % (Auto) 0.6 % (0.0-4.0) 07/11/18 13:22 Baso % (Auto) 0.8 % (0.0-2.0) 07/11/18 13:22 Neut # (Auto) 7.1 K/uL (1.8-7.0) H 07/11/18 13:22 Lymph # (Auto) 0.9 K/uL (1.0-4.3) L 07/11/18 13:22 [place] # (Auto) 0.3 K/uL (0.0-0.8) 07/11/18 13:22 Eos # (Auto) 0.1 K/uL (0.0-0.7) 07/11/18 13:22 Baso # (Auto) 0.1 K/uL (0.0-0.2) 07/11/18 13:22 PT 10.5 SECONDS (9.7-12.2) 07/11/18 13:22 INR 1.0 07/11/18 13:22 APTT 27 SECONDS (21-34) 07/11/18 13:22 Puncture Site Rra 07/11/18 13:05 pCO2 40 mm/Hg (35-45) 07/11/18 13:05 pO2 55 mm/Hg (80-100) L 07/11/18 13:05 HCO3 21.1 mmol/L (21-28) 07/11/18 13:05 ABG pH 7.33 (7.35-7.45) L 07/11/18 13:05 ABG Total CO2 22.3 mmol/L (22-28) 07/11/18 13:05 ABG O2 Saturation 92.2 % (95-98) L 07/11/18 13:05 ABG Base Excess -4.5 mmol/L (-2.0-3.0) L 07/11/18 13:05 Andrea Test Po 07/11/18 13:05 ABG Potassium 3.3 mmol/L (3.6-5.2) L 07/11/18 13:05 A-a O2 Difference 45.0 mm/Hg 07/11/18 13:05 Respiratory Index 0.8 07/11/18 13:05 Sodium 139.0 mmol/l (132-148) 07/11/18 13:05 Chloride 112.0 mmol/L (98-107) H 07/11/18 13:05 Glucose 91 mg/dl (75-110) 07/11/18 13:05 Lactate 0.9 mmol/L (0.7-2.1) 07/11/18 13:05 FiO2 21.0 % 07/11/18 13:05 Sodium 136 mmol/L (132-148) 07/11/18 13:22 Potassium 3.7 mmol/L (3.6-5.2) 07/11/18 13:22 Chloride 104 mmol/L (98-107) 07/11/18 13:22 Carbon Dioxide 24 mmol/L (22-30) 07/11/18 13:22 Anion Gap 11 (10-20) 07/11/18 13:22 BUN 15 mg/dL (9-20) 07/11/18 13:22 Creatinine 0.8 mg/dL (0.8-1.5) 07/11/18 13:22 Est GFR ( Amer) > 60 07/11/18 13:22 Est GFR (Non-Af Amer) > 60 07/11/18 13:22 POC Glucose (mg/dL) 134 mg/dL (65-110) H 07/11/18 12:10 Random Glucose 93 mg/dL (75-110) D 07/11/18 13:22 Calcium 8.8 mg/dl (8.6-10.4) 07/11/18 13:22 Phosphorus 1.5 mg/dL (2.5-4.5) L 07/11/18 13:22 Magnesium 2.2 mg/dL (1.6-2.3) 07/11/18 13:22 Total Bilirubin 0.3 mg/dL (0.2-1.3) 07/11/18 13:22 AST 41 U/L (17-59) 07/11/18 13:22 ALT 24 U/L (21-72) 07/11/18 13:22 Alkaline Phosphatase 128 U/L (38-126) H 07/11/18 13:22 Troponin I 0.0230 ng/mL (0.00-0.120) 07/11/18 13:22 NT-Pro-B Natriuret Pep 595 pg/mL (0-900) 07/11/18 13:22 Total Protein 7.2 g/dL (6.3-8.3) 07/11/18 13:22 Albumin 4.2 g/dL (3.5-5.0) 07/11/18 13:22 Globulin 2.9 gm/dL (2.2-3.9) 07/11/18 13:22 Albumin/Globulin Ratio 1.4 (1.0-2.1) 07/11/18 13:22 Arterial Blood Potassium 3.3 mmol/L (3.6-5.2) L 07/11/18 13:05 - Hospital Course Hospital Course: Patient signed out AMA from ED. Please see H&P for further details. Thank you. Discharge Exam - Head Exam Head Exam: ATRAUMATIC, NORMOCEPHALIC - Eye Exam Eye Exam: EOMI, PERRL - Respiratory Exam Respiratory Exam: Clear to PA & Lateral, NORMAL BREATHING PATTERN. absent: Rales, Rhonchi, Wheezes - Cardiovascular Exam Cardiovascular Exam: REGULAR RHYTHM, +S1, +S2. absent: Gallop, Rubs, Systolic Murmur - GI/Abdominal Exam GI & Abdominal Exam: Normal Bowel Sounds, Soft. absent: Distended, Tenderness - Neurological Exam Neurological exam: Alert, CN II-XII Intact, Oriented x3, Reflexes Normal - Psychiatric Exam Psychiatric exam: Normal Affect, Normal Mood - Skin Skin Exam: Dry Discharge Plan - Follow Up Plan Condition: STABLE Disposition: AGAINST MEDICAL ADVICE Instructions: Seizures, Adult (DC) <Anne Nugent V - Last Filed: 07/11/18 20:36> Provider - Provider Date of Admission: 07/11/18 14:45 Attending physician: Anne Nugent DO Diagnosis - Discharge Diagnosis (1) Left against medical advice Status: Acute Hospital Course - Lab Results Lab Results: Most Recent Lab Values WBC 8.5 K/uL (4.8-10.8) 07/11/18 13:22 RBC 4.93 Mil/uL (4.40-5.90) 07/11/18 13:22 Hgb 14.2 g/dL (12.0-18.0) 07/11/18 13:22 Hct 43.2 % (35.0-51.0) 07/11/18 13:22 MCV 87.7 fL (80.0-94.0) D 07/11/18 13:22 MCH 28.8 pg (27.0-31.0) 07/11/18 13:22 MCHC 32.9 g/dL (33.0-37.0) L 07/11/18 13:22 RDW 15.4 % (11.5-14.5) H 07/11/18 13:22 Plt Count 200 K/uL (130-400) 07/11/18 13:22 MPV 9.5 fL (7.2-11.7) 07/11/18 13:22 Neut % (Auto) 84.3 % (50.0-75.0) H 07/11/18 13:22 Lymph % (Auto) 10.2 % (20.0-40.0) L 07/11/18 13:22 [place] % (Auto) 4.1 % (0.0-10.0) 07/11/18 13:22 Eos % (Auto) 0.6 % (0.0-4.0) 07/11/18 13:22 Baso % (Auto) 0.8 % (0.0-2.0) 07/11/18 13:22 Neut # (Auto) 7.1 K/uL (1.8-7.0) H 07/11/18 13:22 Lymph # (Auto) 0.9 K/uL (1.0-4.3) L 07/11/18 13:22 [place] # (Auto) 0.3 K/uL (0.0-0.8) 07/11/18 13:22 Eos # (Auto) 0.1 K/uL (0.0-0.7) 07/11/18 13:22 Baso # (Auto) 0.1 K/uL (0.0-0.2) 07/11/18 13:22 PT 10.5 SECONDS (9.7-12.2) 07/11/18 13:22 INR 1.0 07/11/18 13:22 APTT 27 SECONDS (21-34) 07/11/18 13:22 Puncture Site Rra 07/11/18 13:05 pCO2 40 mm/Hg (35-45) 07/11/18 13:05 pO2 55 mm/Hg (80-100) L 07/11/18 13:05 HCO3 21.1 mmol/L (21-28) 07/11/18 13:05 ABG pH 7.33 (7.35-7.45) L 07/11/18 13:05 ABG Total CO2 22.3 mmol/L (22-28) 07/11/18 13:05 ABG O2 Saturation 92.2 % (95-98) L 07/11/18 13:05 ABG Base Excess -4.5 mmol/L (-2.0-3.0) L 07/11/18 13:05 Andrea Test Po 07/11/18 13:05 ABG Potassium 3.3 mmol/L (3.6-5.2) L 07/11/18 13:05 A-a O2 Difference 45.0 mm/Hg 07/11/18 13:05 Respiratory Index 0.8 07/11/18 13:05 Sodium 139.0 mmol/l (132-148) 07/11/18 13:05 Chloride 112.0 mmol/L (98-107) H 07/11/18 13:05 Glucose 91 mg/dl (75-110) 07/11/18 13:05 Lactate 0.9 mmol/L (0.7-2.1) 07/11/18 13:05 FiO2 21.0 % 07/11/18 13:05 Sodium 136 mmol/L (132-148) 07/11/18 13:22 Potassium 3.7 mmol/L (3.6-5.2) 07/11/18 13:22 Chloride 104 mmol/L (98-107) 07/11/18 13:22 Carbon Dioxide 24 mmol/L (22-30) 07/11/18 13:22 Anion Gap 11 (10-20) 07/11/18 13:22 BUN 15 mg/dL (9-20) 07/11/18 13:22 Creatinine 0.8 mg/dL (0.8-1.5) 07/11/18 13:22 Est GFR ( Amer) > 60 07/11/18 13:22 Est GFR (Non-Af Amer) > 60 07/11/18 13:22 POC Glucose (mg/dL) 134 mg/dL (65-110) H 07/11/18 12:10 Random Glucose 93 mg/dL (75-110) D 07/11/18 13:22 Calcium 8.8 mg/dl (8.6-10.4) 07/11/18 13:22 Phosphorus 1.5 mg/dL (2.5-4.5) L 07/11/18 13:22 Magnesium 2.2 mg/dL (1.6-2.3) 07/11/18 13:22 Total Bilirubin 0.3 mg/dL (0.2-1.3) 07/11/18 13:22 AST 41 U/L (17-59) 07/11/18 13:22 ALT 24 U/L (21-72) 07/11/18 13:22 Alkaline Phosphatase 128 U/L (38-126) H 07/11/18 13:22 Troponin I 0.0230 ng/mL (0.00-0.120) 07/11/18 13:22 NT-Pro-B Natriuret Pep 595 pg/mL (0-900) 07/11/18 13:22 Total Protein 7.2 g/dL (6.3-8.3) 07/11/18 13:22 Albumin 4.2 g/dL (3.5-5.0) 07/11/18 13:22 Globulin 2.9 gm/dL (2.2-3.9) 07/11/18 13:22 Albumin/Globulin Ratio 1.4 (1.0-2.1) 07/11/18 13:22 Arterial Blood Potassium 3.3 mmol/L (3.6-5.2) L 07/11/18 13:05 Urine Color Yellow (YELLOW) 07/11/18 15:58 Urine Clarity Clear (Clear) 07/11/18 15:58 Urine pH 6.0 (5.0-8.0) 07/11/18 15:58 Ur Specific Vivian 1.018 (1.003-1.030) 07/11/18 15:58 Urine Protein 1+ mg/dL (NEGATIVE) H 07/11/18 15:58 Urine Glucose (UA) Normal mg/dL (Normal) 07/11/18 15:58 Urine Ketones Negative mg/dL (NEGATIVE) 07/11/18 15:58 Urine Blood Negative (NEGATIVE) 07/11/18 15:58 Urine Nitrate Negative (NEGATIVE) 07/11/18 15:58 Urine Bilirubin Negative (NEGATIVE) 07/11/18 15:58 Urine Urobilinogen Normal mg/dL (0.2-1.0) 07/11/18 15:58 Ur Leukocyte Esterase Neg Ky/uL (Negative) 07/11/18 15:58 Urine WBC (Auto) < 1 /hpf (0-5) 07/11/18 15:58 Urine RBC (Auto) 1 /hpf (0-3) 07/11/18 15:58 Ur Squamous Epith Cells < 1 /hpf (0-5) 07/11/18 15:58 Urine Bacteria Rare (<OCC) 07/11/18 15:58 Urine Opiates Screen Negative (NEGATIVE) 07/11/18 15:58 Urine Methadone Screen Negative (NEGATIVE) 07/11/18 15:58 Ur Barbiturates Screen Positive (NEGATIVE) H 07/11/18 15:58 Ur Phencyclidine Scrn Negative (NEGATIVE) 07/11/18 15:58 Ur Amphetamines Screen Negative (NEGATIVE) 07/11/18 15:58 U Benzodiazepines Scrn Negative (NEGATIVE) 07/11/18 15:58 U Oth Cocaine Metabols Negative (NEGATIVE) 07/11/18 15:58 U Cannabinoids Screen Negative (NEGATIVE) 07/11/18 15:58 Attending/Attestation - Attestation Notes (Text): Patient left AGAINST MEDICAL ADVICE prior to arrival. Patient was being worked up for possible seizure disorder however in spite of explanation medicine provided to the patient he chose to leave.
[2018-07-11 16:48] VITALS: O2SAT 100
[2018-07-11 17:36] LABS: BENZODIAZEPINES, UR NEGATIVE (NEGATIVE); OPIATES, UR NEGATIVE (NEGATIVE); PHENCYCLIDINE, UR NEGATIVE (NEGATIVE)
[2018-07-11 17:56] LABS: BARBITURATES, UR POSITIVE (NEGATIVE)
--- NOTE | 2018-07-12 19:51 | CARD ---
APPROVED REPORT Date of service: 07/11/2018 EKG Measurement Heart [id number] <Conclusion> Sinus tachycardia with premature atrial complexes with aberrant conduction Otherwise normal ECG
== END 2018-07-11 16:00 | disposition left against medical advice (07) ==
LOC: C.ER 12:02 → UNDOADMOB 14:45 → C.9E 14:45 → UNDODISOB 16:00
DX: R55 Syncope and collapse (principal); R56.9 Unspecified convulsions; J44.9 Chronic obstructive pulmonary disease, unspecified; I10 Essential (primary) hypertension; F17.210 Nicotine dependence, cigarettes, uncomplicated
CPT/HCPCS: 70450; 71045; 80053; 80324; 80345; 80346; 80349; 80353; 80358; 80361; 81001; 82803; 82948; 83735; 83880; 83992; 84100; 84484; 85025; 85610; 85730; 87040; 94640; 96360; 96374; G0378; J2930; J7030

== ENCOUNTER 2018-09-09 11:55 | Emergency (ER) | payer OTHER ==
[2018-09-09 12:02] VITALS: BMI 29.2
[2018-09-09] MEDS ORDERED: Albuterol-Ipratrop 3 mg / 0.5 (3 ml) UD INH STA (12:11)
[2018-09-09] MEDS ORDERED: Albuterol 0.083% Inhal Sol (2.5 mg/3 mL) UD IH STA (12:12)
--- NOTE | 2018-09-09 12:17 | C.PDOC ---
History Of Present Illness 58 y/o male BIBA for evaluation of worsening SOB x 1 month. Patient is a cigarette smoker with PMHx of HTN and COPD. Pt reports sxs have worsened in the past several days, and he has associated non-productive cough. He denies chest pain, fever, abdominal pain, nausea, vomiting and diarrhea. Pt was given solu- medrol and nebulizer treatment in the field. Time Seen by Provider: 09/09/18 12:03 Chief Complaint (Nursing): Shortness Of Breath History Per: Patient History/Exam Limitations: no limitations Onset/Duration Of Symptoms: Days (x1 month) Current Symptoms Are (Timing): Still Present Current Respiratory Medications: See Home Med List Severity: Moderate Past Medical History Reviewed: Historical Data, Nursing Documentation, Vital Signs - Medical History PMH: Asthma, Back Problems (sciatica), HTN Family History: States: No Known Family Hx - Social History Hx Alcohol Use: No Hx Substance Use: No - Immunization History Hx Tetanus Toxoid Vaccination: No Hx Influenza Vaccination: No Hx Pneumococcal Vaccination: No Review Of Systems Constitutional: Negative for: Fever Cardiovascular: Negative for: Chest Pain, Palpitations Respiratory: Positive for: Cough (non-productive ), Shortness of Breath Gastrointestinal: Negative for: Nausea, Vomiting, Abdominal Pain, Diarrhea Skin: Negative for: Rash Physical Exam - Physical Exam Appears: Well, Non-toxic, No Acute Distress, Unkempt Skin: Warm, Dry, Other (scratch rader on upper back and upper chest ) Head: Normacephalic Oral Mucosa: Moist Cardiovascular: Rhythm Regular, Other (tachycardic) Respiratory: Accessory Muscle Use (mild), No Rales, No Rhonchi, Wheezing (diffuse expiratory wheezing B/L ), Other (speaking in full sentences ) Gastrointestinal/Abdominal: Normal Exam, Bowel Sounds, Soft, No Tenderness Extremity: Normal ROM, No Deformity, Other (trace pitting edema of B/L LEs ) Pulses: Left Dorsalis Pedis: Normal, Right Dorsalis Pedis: Normal Neurological/Psych: Oriented x3 ED Course And Treatment - Laboratory Results Result Diagrams: 09/09/18 12:32 09/09/18 12:32 ECG: Interpreted By Me, Viewed By Me (NSR 88bpm, normal axis, no acute ST/T wave changes) ECG Interpretation: Normal O2 Sat by Pulse Oximetry: 96 (ra) Pulse Ox Interpretation: Normal - Radiology CXR: Interpreted by Me, Viewed By Me CXR Interpretation: Yes: No Acute Disease. No: Infiltrates Progress Note: Blood work, EKG, CXR ordered and reviewed. Patient given albuterol, duoneb treatments. Reevaluation Time: 13:40 Reassessment Condition: Improved (On reassessment, patient states he wants to be discharge. On exam, wheezing has improved but is still present, no current accessory muslce use. Explained to patient that I think he needs admission, however he does not want to stay and has signed out against my medical advice. He understands that by doing so he risks worsening of his current condition and possibly even . Rxs for prednisone and albuterol inhaler given. Patient instructed to follow up with PMD/clinic in 1-2 days, and he understands he should return to ED if symptoms worsen.) Disposition Counseled Patient/Family Regarding: Studies Performed, Diagnosis, Need For Followup, Rx Given - Disposition Referrals: [facility] [Outside] Disposition: AGAINST MEDICAL ADVICE Disposition Time: 13:40 Condition: STABLE Prescriptions: Albuterol HFA [Ventolin HFA 90 mcg/actuation (8 g)] 0.09 mg IH Q4 PRN #1 puff PRN Reason: Wheezing predniSONE [predniSONE Tab] 40 mg PO DAILY #6 tab Instructions: Exacerbation of COPD (DC), Leaving Against Medical Advice Forms: [employer] (Welsh) Print Language: KHMER - Clinical Impression Clinical Impression: COPD exacerbation, Left against medical advice - Scribe Statement The provider has reviewed the documentation as recorded by the Scribroyce Starr Do Provider Attestation: All medical record entries made by the Scribe were at my direction and personally dictated by me. I have reviewed the chart and agree that the record accurately reflects my personal performance of the history, physical exam, medical decision making, and the department course for this patient. I have also personally directed, reviewed, and agree with the discharge instructions and di sposition.
[2018-09-09 12:18] VITALS: BP 135/69; PULSE 90; RESP 24; TEMP 98.3; O2SAT 96
[2018-09-09] MEDS ORDERED: Albuterol-Ipratrop 3 mg / 0.5 (3 ml) UD ONE (12:34)
[2018-09-09] MEDS ORDERED: Albuterol 0.083% Inhal Sol (2.5 mg/3 mL) UD ONE (12:34)
[2018-09-09 12:37] LABS: BASO # 0.1 K/uL (0.0-0.2); EOS % 0.7 % (0.0-4.0); HEMOGLOBIN 13.5 g/dL (12.0-18.0); LYMPH # 1.6 K/uL (1.0-4.3); LYMPH % 25.7 % (20.0-40.0); MEAN CELL VOLUME 88.7 fL (80.0-94.0); MEAN CORPUSCULAR HEMOGLOBIN 28.9 pg (27.0-31.0); MEAN CORPUSCULAR HGB CONC 32.6 g/dL (33.0-37.0); MEAN PLATELET VOLUME 8.9 fL (7.2-11.7); MONO # 0.4 K/uL (0.0-0.8); MONO % 6.7 % (0.0-10.0); NEUT # 4.1 K/uL (1.8-7.0); NEUT % 65.9 % (50.0-75.0); RBC 4.67 Mil/uL (4.40-5.90); RED CELL DISTRIBUTION WIDTH 15.7 % (11.5-14.5); WHITE BLOOD COUNT 6.2 K/uL (4.8-10.8)
[2018-09-09 12:46] LABS: PROTHROMBIN TIME 11.2 SECONDS (9.7-12.2)
[2018-09-09 12:52] LABS: ALB/GLOB RATIO 1.5 (1.0-2.1); ALBUMIN 3.9 g/dL (3.5-5.0); ALT/SGPT 10 U/L (21-72); AST/SGOT 22 U/L (17-59); BLOOD UREA NITROGEN 25 mg/dL (9-20); CALCIUM 8.9 mg/dl (8.6-10.4); GFR NON-AFRICAN AMERICAN > 60
--- NOTE | 2018-09-09 12:58 | RAD ---
Date of service: 09/09/2018 PROCEDURE: CHEST RADIOGRAPH, 1 VIEW HISTORY: SOB COMPARISON: 07/11/2018. FINDINGS: LUNGS: The lungs are well inflated and clear. PLEURA: No pneumothorax or pleural effusion. CARDIOVASCULAR: There is mild cardiomegaly. No aortic atherosclerotic calcifications present. OSSEOUS STRUCTURES: Within normal limits for the patient's age. VISUALIZED UPPER ABDOMEN: Normal. OTHER FINDINGS: None. IMPRESSION: No active pulmonary disease.
[2018-09-09 13:03] LABS: B-TYPE NATRIURETIC PEPTIDE 708 pg/mL (0-900); CK-MB 4.71 ng/mL (0.0-3.38)
[2018-09-09 13:46] LABS: SQUAMOUS EPITHIAL < 1 /hpf (0-5); URINE BILIRUBIN NEGATIVE (NEGATIVE); URINE BLOOD NEGATIVE (NEGATIVE); URINE CLARITY Clear (Clear); URINE COLOR Yellow (YELLOW); URINE GLUCOSE (UA) NORMAL (Normal); URINE LEUKOCYTE ESTERASE NEG Leu/uL (Negative); URINE PROTEIN 1+ mg/dL (NEGATIVE); URINE UROBILINOGEN NORMAL mg/dL (0.2-1.0)
[2018-09-09 14:06] LABS: BARBITURATES, UR NEGATIVE (NEGATIVE); BENZODIAZEPINES, UR NEGATIVE (NEGATIVE); OPIATES, UR NEGATIVE (NEGATIVE); PHENCYCLIDINE, UR NEGATIVE (NEGATIVE)
--- NOTE | 2018-09-13 19:49 | CARD ---
APPROVED REPORT Date of service: 09/09/2018 EKG Measurement Heart [id number] <Conclusion> Normal sinus rhythm Minimal voltage criteria for LVH, may be normal variant Borderline ECG
== END 2018-09-09 13:50 | disposition left against medical advice (07) ==
LOC: C.ER 11:55
DX: J44.1 Chronic obstructive pulmonary disease with (acute) exacerbation (principal); F17.210 Nicotine dependence, cigarettes, uncomplicated